=== PATIENT | female | born 1980 | race Two or more races ===

== ENCOUNTER 2019-10-04 08:00 | Inpatient (IN) | payer OTHER ==
[~2019-10-04] VITALS: Ht 157.5 cm; Wt 87.1 kg
[2019-10-04] MEDS ORDERED: SYNTHROID88 MCG PO (10:05)
== END 2019-10-13 13:47 | disposition home or self-care (01) | DRG 743 ==
LOC: SURH 10-10 08:00 → O/R 10-10 08:00 → OB/GYN 10-10 09:11 → O/R 10-10 09:11 → SURH 10-10 11:15 → OB/GYN 10-10 16:50
PROVIDERS: ADMIT Obstetrics & Gynecology Obstetrics
PROC: 0UB60ZZ Excision of Left Fallopian Tube, Open Approach (ICD-10-PCS; 2019-10-10)
PROC: 0UB10ZZ Excision of Left Ovary, Open Approach (ICD-10-PCS; 2019-10-10)
PROC: 0UT90ZZ Resection of Uterus, Open Approach (ICD-10-PCS; principal; 2019-10-10 11:15)
PROC: 4A19X1Z Monitoring of Respiratory Capacity, External Approach (ICD-10-PCS; 2019-10-11)
DX: D25.1 Intramural leiomyoma of uterus (principal); D50.0 Iron deficiency anemia secondary to blood loss (chronic); E03.9 Hypothyroidism, unspecified; N72 Inflammatory disease of cervix uteri; D25.2 Subserosal leiomyoma of uterus; N83.12 Corpus luteum cyst of left ovary